=== PATIENT | male | born 1965 | race Caucasian/White ===

== ENCOUNTER 2017-10-29 10:50 | Day surgery (SDC) | payer OTHER ==
[~2017-10-29] VITALS: Ht 175.3 cm; Wt 95.0 kg
[2017-10-29 11:30] VITALS: Ht 175.3 cm; Wt 95.0 kg
[2017-10-29 11:40] VITALS: BP 121/71; PULSE 75; RESP 18
[2017-10-29] MEDS ORDERED: PROZAC PO (11:45)
[2017-10-29] MEDS ORDERED: ACYCLOVIR PO (11:45)
[2017-10-29] MEDS ORDERED: PROPOFOL 60 ML ONE (11:45)
[2017-10-29] MEDS ORDERED: LISINOPRIL PO (11:45)
[2017-10-29] MEDS ORDERED: LIDOCAINE 2% (SDV) 5 ML INJ ONE (11:45)
[2017-10-29] MEDS ORDERED: HYDROCHLOROTHIAZIDE PO (11:45)
--- NOTE | 2017-10-29 12:18 | OPPN ---
Date/Time of Note Date/Time of Note DATE: 10/29/17 TIME: 12:16 Operative Report Preoperative Diagnosis Chronic heartburn Screening Postoperative Diagnosis Hiatal hernia and gastroesophageal reflux disease Gastritis with erosions Sigmoid colon polyp was removed using snare and electrocautery Internal hemorrhoid Operation/Procedure Performed Esophagogastroduodenoscopy and biopsy Colonoscopy and polypectomy Surgeon see signature line personnel security assistant None Anesthesia: MAC Estimated blood loss: none Transfusion Required none Specimen Gastric mucosal biopsy Sigmoid colon polyp Grafts/Implants none Complications none KIKO MURPHY MD Oct 29, 2017 12:18
[2017-10-29 12:39] VITALS: BP 124/80; PULSE 67; RESP 24
--- NOTE | 2017-10-29 13:28 | GILP ---
DATE OF PROCEDURE: NAME OF PROCEDURES: 1. Esophagogastroduodenoscopy and biopsy. 2. Colonoscopy and polypectomy. SURGEON: Kiko Branch, name. PREOPERATIVE DIAGNOSES: 1. Chronic heartburn. 2. Screening colonoscopy. POSTOPERATIVE DIAGNOSES: 1. Hiatal hernia. 2. Gastroesophageal reflux disease. 3. Gastritis with erosions. 4. Gastric mucosal biopsies were taken for Helicobacter pylori test. 5. Colonoscopy all the way to the cecum. 6. Sigmoid colon polyp was removed using the snare and electrocautery. 7. Internal hemorrhoids. INDICATION FOR THE PROCEDURE: Mr. Valeriy Steele is a 52-year-old male patient who had chronic heartb urn, not responding to therapy. He also needed screening colonoscopy. The procedures and possible complications were well explained to the patient, and he understood and consented to the procedures. DESCRIPTION OF PROCEDURE: Under the influence of anesthesia, the gastroscope was carefully introduc ed into the esophagus and under direct vision, it was advanced to the stomach and through the pyloru s into the duodenal bulb and descending duodenum. FINDINGS: ESOPHAGUS: The patient had hiatal hernia and gastroesophageal reflux disease. STOMACH: He had gastritis with erosions. Gastric mucosal biopsies were taken for H. pylori test. DUODENUM: Normal. The colonoscope was carefully introduced in the rectum and under direct vision, it was advanced all the way to the cecum. FINDINGS: The patient had a sigmoid colon polyp and it was removed using the snare and electrocaute ry. He was noted to have internal hemorrhoids. He tolerated the procedures very well and there was no complication from the procedures. At the end of the procedures, he was awake with stable vital signs and he was discharged home to the care of h is family. IMPRESSION: Please see postoperative diagnoses. PLAN: 1. Omeprazole 40 mg p.o. q.a.m. 2. Await histopathology reports. 3. Next screening colonoscopy in 5 years. Dictated By: KIKO HIDALGO/PORFIRIO Conf#: [id number] DID#: [id number]
== END 2017-10-29 19:44 | disposition home or self-care (01) ==
LOC: GIL 10:50
PROVIDERS: ATTEND Internal Medicine Gastroenterology
DX: Z12.11 Encounter for screening for malignant neoplasm of colon (principal); D12.5 Benign neoplasm of sigmoid colon; K64.8 Other hemorrhoids; K29.70 Gastritis, unspecified, without bleeding; I10 Essential (primary) hypertension; J45.909 Unspecified asthma, uncomplicated; E66.9 Obesity, unspecified; Z68.30 Body mass index [BMI] 30.0-30.9, adult
CPT/HCPCS: 43239; 45380; 87081; 88305; Z7610